=== PATIENT | female | born 1990 | race American Indian/Alaskan Native ===

== ENCOUNTER 2020-11-03 18:41 | Emergency (ER) | payer SELFPAY ==
[2020-11-03 19:04] VITALS: BP 137/73
--- NOTE | 2020-11-03 19:22 | Event Note ---
ED Screening Note Date of service: 11/03/20 Time: 19:22 ED Screening Note: This 30-year-old female who presents to ED complaining of main chest back pain and worsening shortness of breath. Patient denies coughing remembering a sick contact. Low-grade fever, tacky, This initial assessment/diagnostic orders/clinical plan/treatment(s) is/are subject to change based on patients health status, clinical progression and re- assessment by fellow clinical providers in the ED. Further treatment and workup at subsequent clinical providers discretion. Patient/guardian urged not to elope from the ED as their condition may be serious if not clinically assessed and managed. Initial orders include: Basic labs, chest x-ray.
[2020-11-03 19:52] LABS: Basophils # (Auto) 0.1 K/mm3 (0.0-0.1); Basophils % (Auto) 0.6 % (0.0-1.8); Eosinophils # (Auto) 0.3 K/mm3 (0.0-0.4); Eosinophils % (Auto) 2.6 % (0.0-4.3); Hematocrit 31.4 % (30.3-42.9); Hemoglobin 10.4 gm/dl (10.1-14.3); Lymphocytes # (Auto) 1.8 K/mm3 (1.2-5.4); Mean Corpuscular HGB Conc 33 % (30-34); Mean Corpuscular Volume 78 fl (79-97); Monocytes # (Auto) 0.5 K/mm3 (0.0-0.8); Monocytes % (Auto) 4.5 % (0.0-7.3); Platelet Count 391 K/mm3 (140-440); Red Blood Count 4.04 M/mm3 (3.65-5.03); Red Cell Distribution Width 17.3 % (13.2-15.2)
[2020-11-03 20:14] LABS: Alanine Aminotransferase 16 units/L (7-56); Albumin 4.3 g/dL (3.9-5); BUN/Creatinine Ratio 13; Blood Urea Nitrogen 10 mg/dL (7-17); Hemolysis Index 10
--- NOTE | 2020-11-03 20:50 | XRay Report ---
CHEST 2 VIEWS INDICATION / CLINICAL INFORMATION: sob. COMPARISON: None available. FINDINGS: SUPPORT DEVICES: None. HEART / MEDIASTINUM: No significant abnormality. LUNGS / PLEURA: No significant pulmonary or pleural abnormality. No pneumothorax. ADDITIONAL FINDINGS: No significant additional findings. IMPRESSION: 1. No acute findings. Signer Name: Deniz Hightower MD Signed: 11/03/2020 8:45 PM Workstation Name: [id number]
[2020-11-03 23:21] LABS: INR 1.12 (0.87-1.13)
[2020-11-03 23:22] LABS: Partial Thromboplastin Time 37.4 Sec. (24.2-36.6)
[2020-11-03 23:32] LABS: Bilirubin,Urine NEG (Negative); Blood,Urine NEG (Negative); Color,Urine Yellow (Yellow); Mucus,Urine 3+ /HPF; Protein,Urine <15 mg/dL mg/dL (Negative); Urobilinogen,Urine < 2.0 mg/dL (<2.0)
--- NOTE | 2020-11-04 00:45 | Emergency Department Report ---
ED General Adult HPI - General Chief complaint: Dyspnea/Respdistress Stated complaint: SOB/BACK PAIN Time Seen by Provider: 11/03/20 22:46 Source: patient Mode of arrival: Ambulatory Limitations: No Limitations - History of Present Illness Initial comments: This 30-year-old female who presents to ED complaining of main chest back pain and worsening shortness of breath. Patient denies coughing remembering a sick contacts, pt denies asthma , no oral contraceptives, denies smoking, there is on n/v, no dizziness, no suspicious travel. Symptoms have persisted for past 3 weeks Severity scale (0 -10): 0 - Related Data Previous Rx's Medication Instructions Recorded Last Taken Type Albuterol Mdi (or & Nicu Only) 2 puff IH QID PRN #8.5 gram 11/04/20 Unknown Rx [ProAir HFA Inhaler] Azithromycin 500 mg PO DAILY #5 tablet 11/04/20 Unknown Rx Ibuprofen [Motrin 800 MG tab] 800 mg PO Q8HR PRN #30 tablet 11/04/20 Unknown Rx predniSONE [Deltasone] 40 mg PO QDAY 5 Days #10 tab 11/04/20 Unknown Rx Allergies Allergy/AdvReac Type Severity Reaction Status Date / Time tramadol Allergy Unknown Verified 11/03/20 19:04 ED Review of Systems ROS: Stated complaint: SOB/BACK PAIN Other details as noted in HPI Constitutional: fever Eyes: denies: eye pain, eye discharge, vision change ENT: throat pain, congestion Respiratory: cough, shortness of breath. denies: wheezing Cardiovascular: chest pain (chest wall pain ). denies: palpitations Endocrine: no symptoms reported Gastrointestinal: denies: abdominal pain, nausea, vomiting, diarrhea Genitourinary: denies: urgency, dysuria, discharge Musculoskeletal: denies: back pain, joint swelling, arthralgia Skin: denies: rash, lesions Neurological: denies: headache, weakness, paresthesias Psychiatric: anxiety Hematological/Lymphatic: denies: easy bleeding, easy bruising ED Past Medical Hx - Past Medical History Previous Medical History?: Yes Hx Psychiatric Treatment: Yes (ANXIETY) - Medications Home Medications: Home Medications Medication Instructions Recorded Confirmed Last Taken Type Albuterol Mdi (or & Nicu Only) 2 puff IH QID PRN #8.5 gram 11/04/20 Unknown Rx [ProAir HFA Inhaler] Azithromycin 500 mg PO DAILY #5 tablet 11/04/20 Unknown Rx Ibuprofen [Motrin 800 MG tab] 800 mg PO Q8HR PRN #30 tablet 11/04/20 Unknown Rx predniSONE [Deltasone] 40 mg PO QDAY 5 Days #10 tab 11/04/20 Unknown Rx ED Physical Exam - General Limitations: No Limitations General appearance: alert, in no apparent distress - Head Head exam: Present: atraumatic, normocephalic - Eye Eye exam: Present: normal appearance, EOMI Pupils: Present: normal accommodation - ENT ENT exam: Present: normal orophraynx, mucous membranes moist - Neck Neck exam: Present: normal inspection, full ROM. Absent: tenderness, meningismus, lymphadenopathy, thyromegaly - Respiratory Respiratory exam: Present: normal lung sounds bilaterally, chest wall tenderness (anterior chest wall tendernesd to deep palpation), decreased breath sounds. Absent: respiratory distress, wheezes, rales, rhonchi, stridor, prolonged expiratory - Cardiovascular Cardiovascular Exam: Present: regular rate, normal rhythm, normal heart sounds. Absent: systolic murmur, diastolic murmur, rubs, gallop - GI/Abdominal GI/Abdominal exam: Present: soft, normal bowel sounds. Absent: tenderness, guarding, rebound, rigid, bruit, hernia - Rectal Rectal exam: Present: deferred - Extremities Exam Extremities exam: Present: normal inspection, full ROM, normal capillary refill. Absent: tenderness - Back Exam Back exam: Present: normal inspection, full ROM, vertebral tenderness. Absent: tenderness, CVA tenderness (R), CVA tenderness (L), paraspinal tenderness - Neurological Exam Neurological exam: Present: alert, oriented X3, CN II-XII intact, normal gait, reflexes normal. Absent: motor sensory deficit - Expanded Neurological Exam Expanded Patient oriented to: Present: person, place, time Speech: Present: fluid speech Motor strength exam: RUE: 5, LUE: 5, RLE: 5, LLE: 5 Best Eye Response (Pamela): (4) open spontaneously Best Motor Response ([place]): (6) obeys commands Best Verbal Response ([place]): (5) oriented Pamela Total: 15 - Psychiatric Psychiatric exam: Present: normal affect, normal mood, anxious. Absent: agitated - Skin Skin exam: Present: warm, dry, intact, normal color. Absent: rash ED Course Vital Signs 11/03/20 11/03/20 19:02 23:10 Temperature 99.9 F H Pulse Rate 110 H 63 Respiratory 24 17 Rate Blood Pressure 137/73 [Right] O2 Sat by Pulse 100 100 Oximetry ED Medical Decision Making - Lab Data Result diagrams: 11/03/20 19:30 11/03/20 19:30 Labs 11/03/20 11/03/20 11/03/20 19:30 19:30 19:30 WBC 10.2 RBC 4.04 Hgb 10.4 Hct 31.4 MCV 78 L MCH 26 L MCHC 33 RDW 17.3 H Plt Count 391 Lymph % (Auto) 18.0 [place] % (Auto) 4.5 Eos % (Auto) 2.6 Baso % (Auto) 0.6 Lymph # (Auto) 1.8 [place] # (Auto) 0.5 Eos # (Auto) 0.3 Baso # (Auto) 0.1 Seg Neutrophils % 74.3 H Seg Neutrophils # 7.6 PT INR APTT Sodium 137 Potassium 4.1 Chloride 100.8 Carbon Dioxide 25 Anion Gap 15 BUN 10 Creatinine 0.8 Estimated GFR > 60 BUN/Creatinine Ratio 13 Glucose 84 Calcium 9.0 Total Bilirubin 0.30 AST 24 ALT 16 Alkaline Phosphatase 65 Troponin T Total Protein 7.7 Albumin 4.3 Albumin/Globulin Ratio 1.3 HCG, Qual Negative Urine Color Urine Turbidity Urine pH Ur Specific [place] Urine Protein Urine Glucose (UA) Urine Ketones Urine Blood Urine Nitrite Urine Bilirubin Urine Urobilinogen Ur Leukocyte Esterase Urine WBC (Auto) Urine RBC (Auto) U Epithel Cells (Auto) Urine Mucus 11/03/20 11/03/20 11/03/20 22:57 22:57 23:18 WBC RBC Hgb Hct MCV MCH MCHC RDW Plt Count Lymph % (Auto) [place] % (Auto) Eos % (Auto) Baso % (Auto) Lymph # (Auto) [place] # (Auto) Eos # (Auto) Baso # (Auto) Seg Neutrophils % Seg Neutrophils # PT 14.2 INR 1.12 APTT 37.4 H Sodium Potassium Chloride Carbon Dioxide Anion Gap BUN Creatinine Estimated GFR BUN/Creatinine Ratio Glucose Calcium Total Bilirubin AST ALT Alkaline Phosphatase Troponin T < 0.010 Total Protein Albumin Albumin/Globulin Ratio HCG, Qual Urine Color Yellow Urine Turbidity Cloudy Urine pH 5.0 Ur Specific [place] 1.027 Urine Protein <15 mg/dl Urine Glucose (UA) Neg Urine Ketones Neg Urine Blood Neg Urine Nitrite Neg Urine Bilirubin Neg Urine Urobilinogen < 2.0 Ur Leukocyte Esterase Neg Urine WBC (Auto) 4.0 Urine RBC (Auto) 1.0 U Epithel Cells (Auto) 10.0 Urine Mucus 3+ - Radiology Data Radiology results: report reviewed, image reviewed FINDINGS: SUPPORT DEVICES: None. HEART / MEDIASTINUM: No significant abnormality. LUNGS / PLEURA: No significant pulmonary or pleural abnormality. No pneumothora x. ADDITIONAL FINDINGS: No significant additional findings. IMPRESSION: 1. No acute findings. Signer Name: Deniz Boswell MD Signed: 11/03/2020 8:45 PM Workstation Name: [place] Transcribed By: JAZMYN Dictated By: JOSÉ LUIS BOSWELL MD Electronically Authenticated By: JOSÉ LUIS BOSWELL MD Signed Date/Time: 11/03/202044 DD/ 44 TD/TT: - Medical Decision Making Chest x-ray normal no opacities no infiltrate, Wells score 1.5 , low probability for PE. Labs noted normal, EKG is normal, there are no fever chills at this time there is no wheezing no shortness of breath no rhonchi, patient is alert oriented x3, patient has ambulated from room to bathroom and back without increased symptoms. Plan patient will be DC'd home with treatment for bronchitis. Patient will follow up with primary care doctor in 2 to 3 days. Patient verbalized agreement and understanding with discharge plan patient DC to home in stable condition at this time Critical care attestation.: If time is entered above; I have spent that time in minutes in the direct care of this critically ill patient, excluding procedure time. ED Disposition Clinical Impression: Acute bronchitis Qualifiers: Bronchitis organism: unspecified organism Qualified Code(s): J20.9 - Acute bronchitis, unspecified Disposition: DC-01 TO HOME OR SELFCARE Is pt being admited?: No Does the pt Need Aspirin: No Condition: Stable Instructions: Acute Bronchitis (ED), Acute Bronchitis, Adult Prescriptions: Azithromycin 500 mg PO DAILY #5 tablet predniSONE [Deltasone] 40 mg PO QDAY 5 Days #10 tab Ibuprofen [Motrin 800 MG tab] 800 mg PO Q8HR PRN #30 tablet PRN Reason: pain fever Albuterol Mdi (or & Nicu Only) [ProAir HFA Inhaler] 2 puff IH QID PRN #8.5 gram PRN Reason: Shortness Of Breath Referrals: TRELL KEN MD [Staff Physician] - 3-5 Days Forms: Work/School Release Form(ED) Time of Disposition: 01:03
--- NOTE | 2020-11-04 14:45 | Electrocardiograph Report ---
[facility] Test Date: 2020-11-03 Test Time: 23:34:50 Pat Name: DORENE FRENCH Department: Room: Gender: F Mailroom Messenger: ANASTACIO : 1990 Requested By: MALIHA CRAFT Order Number: [id number] Reading MD: Varsha Guerin Measurements Intervals [place] Rate: 77 P: 43 IA: 146 QRS: 42 QRSD: 66 T: 15 QT: 378 QTc: 428 Interpretive Statements Sinus rhythm No previous ECG available for comparison Electronically Signed On 11-04-2020 14:44:40 EDT by Varsha Guerin
== END 2020-11-04 01:16 | disposition home or self-care (01) ==
LOC: ED 18:41
DX: J20.9 Acute bronchitis, unspecified (principal); F41.9 Anxiety disorder, unspecified; Z98.890 Other specified postprocedural states; Z88.6 Allergy status to analgesic agent; Z79.899 Other long term (current) drug therapy
CPT/HCPCS: 36415; 71046; 80053; 81001; 84484; 84703; 85025; 85610; 85730; 93005; 99284

== ENCOUNTER 2022-01-14 20:31 | Emergency (ER) | payer SELFPAY ==
[2022-01-14] MEDS ORDERED: LIDOCAINE VISCOUS 2% 15 ML ORAL LIQD PO ONE (22:58)
[2022-01-14] MEDS ORDERED: ALUM-MAG HYDROXIDE-SIMETHICONE 200-200-20MG/5ML ORAL LIQD 30 ML PO ONE (22:58)
[2022-01-14] MEDS ORDERED: FAMOTIDINE 20 MG TAB PO ONE (22:58)
[2022-01-14] MEDS ORDERED: DICYCLOMINE 20 MG TAB PO ONE (22:58)
[2022-01-14 23:13] LABS: Bilirubin,Urine Negative (Negative); Blood,Urine Negative (Negative); Color,Urine Colorless (Yellow); Urobilinogen,Urine 0.2 mg/dL (<2.0)
[2022-01-14 23:17] LABS: Mucus,Urine 1+ /HPF; RBC,Urine < 1.0 /HPF (0.0-6.0)
[2022-01-14 23:26] LABS: HCG Qualitative,Urine Negative (Negative)
--- NOTE | 2022-01-15 01:19 | Emergency Department Report ---
ED Abdominal Pain HPI - General Chief Complaint: Abdominal Pain Stated Complaint: STOMACH PAIN, ANXIETY, DEPRESSION Source: patient Mode of arrival: Ambulatory Limitations: No Limitations - History of Present Illness Initial Comments: Patient is a 31-year-old -[place] female with a history of chronic anxiety and depression who presents to the ED with acute onset persistent epigastric pain which she describes as a burning sensation persistently for the last 2 days. Patient also states that she has not been on her anxiety medications for almost 6 months and would like a refill on the same. Patient denies suicidal ideation, nausea and vomiting, chest pain and shortness of breath, fever, chills, diarrhea, dysuria, urinary frequency and urgency, vaginal bleeding or vaginal discharge, hematemesis or hematochezia. MD Complaint: abdominal pain (epigastric pain, burning), other (anxious) -: days(s) (2) Location: epigastric Radiation: none Migration to: no migration Severity: moderate Severity scale (0 -10): 5 Quality: aching, burning Consistency: constant Improves With: nothing Worsens With: eating Associated Symptoms: denies other symptoms, nausea. denies: vomiting, diarrhea, fever, chills, constipation, dysuria, hematemesis, hematochezia, melena, hematuria, anorexia, syncope, other - Related Data LMP Date: 06/14/21 Previous Rx's Medication Instructions Recorded Last Taken Type Albuterol Mdi (or & Nicu Only) 2 puff IH QID PRN #8.5 gram 11/04/20 Unknown Rx [ProAir HFA Inhaler] Azithromycin 500 mg PO DAILY #5 tablet 11/04/20 Unknown Rx Ibuprofen [Motrin 800 MG tab] 800 mg PO Q8HR PRN #30 tablet 11/04/20 Unknown Rx predniSONE [Deltasone] 40 mg PO QDAY 5 Days #10 tab 11/04/20 Unknown Rx Famotidine [Pepcid] 20 mg PO BID #60 tablet 01/15/22 Unknown Rx Omeprazole 40 mg PO DAILY #30 cap 01/15/22 Unknown Rx Ondansetron [Zofran Odt] 4 mg PO Q8HR PRN #15 tab.rapdis 01/15/22 Unknown Rx buPROPion [Wellbutrin] 75 mg PO BID #60 tab 01/15/22 Unknown Rx hydrOXYzine PAMOATE [Vistaril] 50 mg PO QHS PRN #30 capsule 01/15/22 Unknown Rx Allergies Allergy/AdvReac Type Severity Reaction Status Date / Time tramadol Allergy Unknown Verified 11/03/20 19:04 ED Review of Systems ROS: Stated complaint: STOMACH PAIN, ANXIETY, DEPRESSION Other details as noted in HPI Constitutional: denies: chills, fever Eyes: denies: eye pain, eye discharge, vision change ENT: denies: ear pain, throat pain Respiratory: denies: cough, shortness of breath, wheezing Cardiovascular: denies: chest pain, palpitations Endocrine: no symptoms reported Gastrointestinal: abdominal pain (Epigastric). denies: nausea, vomiting, diarrhea, constipation, hematemesis, hematochezia Genitourinary: denies: urgency, dysuria, discharge Musculoskeletal: denies: back pain, joint swelling, arthralgia Skin: denies: rash, lesions Neurological: denies: headache, weakness, paresthesias Psychiatric: anxiety, depression Hematological/Lymphatic: denies: easy bleeding, easy bruising ED Past Medical Hx - Past Medical History Hx Psychiatric Treatment: Yes (ANXIETY) - Medications Home Medications: Home Medications Medication Instructions Recorded Confirmed Last Taken Type Albuterol Mdi (or & Nicu Only) 2 puff IH QID PRN #8.5 gram 11/04/20 Unknown Rx [ProAir HFA Inhaler] Azithromycin 500 mg PO DAILY #5 tablet 11/04/20 Unknown Rx Ibuprofen [Motrin 800 MG tab] 800 mg PO Q8HR PRN #30 tablet 11/04/20 Unknown Rx predniSONE [Deltasone] 40 mg PO QDAY 5 Days #10 tab 11/04/20 Unknown Rx Famotidine [Pepcid] 20 mg PO BID #60 tablet 01/15/22 Unknown Rx Omeprazole 40 mg PO DAILY #30 cap 01/15/22 Unknown Rx Ondansetron [Zofran Odt] 4 mg PO Q8HR PRN #15 tab.rapdis 01/15/22 Unknown Rx buPROPion [Wellbutrin] 75 mg PO BID #60 tab 01/15/22 Unknown Rx hydrOXYzine PAMOATE [Vistaril] 50 mg PO QHS PRN #30 capsule 01/15/22 Unknown Rx ED Physical Exam - General Limitations: No Limitations General appearance: alert, in no apparent distress - Head Head exam: Present: atraumatic, normocephalic, normal inspection - Eye Eye exam: Present: normal appearance, PERRL, EOMI Pupils: Present: normal accommodation - ENT ENT exam: Present: normal exam, normal orophraynx, mucous membranes moist, TM's normal bilaterally, normal external ear exam - Neck Neck exam: Present: normal inspection, full ROM. Absent: tenderness - Respiratory Respiratory exam: Present: normal lung sounds bilaterally. Absent: respiratory distress, wheezes, rales, chest wall tenderness, accessory muscle use, prolonged expiratory - Cardiovascular Cardiovascular Exam: Present: regular rate, normal rhythm, normal heart sounds. Absent: systolic murmur, diastolic murmur, rubs, gallop - GI/Abdominal GI/Abdominal exam: Present: soft, normal bowel sounds. Absent: tenderness, guarding, rebound, rigid, hyperactive bowel sounds, hypoactive bowel sounds, organomegaly - Extremities Exam Extremities exam: Present: normal inspection, full ROM, normal capillary refill. Absent: tenderness - Back Exam Back exam: Present: normal inspection, full ROM. Absent: tenderness, CVA tenderness (L), muscle spasm, paraspinal tenderness, vertebral tenderness - Neurological Exam Neurological exam: Present: alert, oriented X3, CN II-XII intact, normal gait, reflexes normal - Psychiatric Psychiatric exam: Present: normal affect, normal mood - Skin Skin exam: Present: warm, dry, intact, normal color. Absent: rash ED Course Vital Signs 01/14/22 20:49 Temperature 98.3 F Pulse Rate 98 H Respiratory 18 Rate Blood Pressure 134/78 O2 Sat by Pulse 100 Oximetry ED Medical Decision Making - Medical Decision Making This is a 31-year-old -[place] female with a history of chronic anxiety and depression who presents to the ED with acute onset persistent epigastric pain which she describes as a burning sensation persistently for the last 2 days. Patient also states that she has not been on her anxiety medications for almost 6 months and would like a refill on the same. In the ED, patient is ilene rt and oriented x3 and is not in any distress. Patient is hemodynamically stable. Patient was treated in the ED for GERD. Lab test results were reviewed and are all nonactionable. On reevaluation, patient's pain is well controlled medication. Patient was discharged home on medications and advised to follow-up with her primary care physician in 5 to 7 days for reevaluation or return to the ED immediately if symptoms get worse. - Differential Diagnosis GERD; gastritis; anxiety; Critical care attestation.: If time is entered above; I have spent that time in minutes in the direct care of this critically ill patient, excluding procedure time. ED Disposition Clinical Impression: Acute epigastric pain, Anxiety with depression GERD (gastroesophageal reflux disease) Qualifiers: Esophagitis presence: esophagitis presence not specified Qualified Code(s): K21.9 - Gastro-esophageal reflux disease without esophagitis Nausea and vomiting Qualifiers: Vomiting type: unspecified Qualified Code(s): R11.2 - Nausea with vomiting, unspecified Disposition: HOME / SELF CARE / HOMELESS Is pt being admited?: No Does the pt Need Aspirin: No Condition: Stable Instructions: Abdominal Pain (ED), Nausea and Vomiting, Adult, [id number], Abdominal Pain, Adult, [id number], Heartburn, [id number], Generalized Anxiety Disorder, Adult, Food Choices for Gastroesophageal Reflux Disease, Adult, [id number], Gastroesophageal Reflux Disease, Adult, [id number] Additional Instructions: All lab test results were reviewed and are all nonactionable. Therefore take medication with food, drink plenty of fluids and follow-up with your primary care physician in 7 to 10 days for reevaluation. Return to the ED immediately if symptoms get worse. Prescriptions: hydrOXYzine PAMOATE [Vistaril] 50 mg PO QHS PRN #30 capsule PRN Reason: Anxiety Omeprazole 40 mg PO DAILY #30 cap Famotidine [Pepcid] 20 mg PO BID #60 tablet buPROPion [Wellbutrin] 75 mg PO BID #60 tab Ondansetron [Zofran Odt] 4 mg PO Q8HR PRN #15 tab.rapdis PRN Reason: Nausea Referrals: [facility] [Provider Group] - 3-5 Days Time of Disposition: 01:34 Print Language: INDONESIAN
[2022-01-15 02:28] VITALS: BP 131/83
== END 2022-01-15 02:56 | disposition home or self-care (01) ==
LOC: ED 20:31
DX: R10.13 Epigastric pain (principal); K21.9 Gastro-esophageal reflux disease without esophagitis; R11.2 Nausea with vomiting, unspecified; F41.8 Other specified anxiety disorders
CPT/HCPCS: 81001; 81025; 99283